=== PATIENT | male | born 1950 | race African-American/Black ===

== ENCOUNTER 2019-02-10 16:16 | Inpatient (IN) | payer OTHER ==
[2019-02-10 19:24] VITALS: BMI 24.1
--- NOTE | 2019-02-10 20:45 | HP ---
CIWA Score Nausea/Vomitin-No Nausea/No Vomiting Muscle Tremors: None Anxiety: 1-Mildly Anxious Agitation: 0-Normal Activity Paroxysmal Sweats: No Perspiration Orientation: 1-Uncertain about Date Tacttile Disturbances: 0-None Auditory Disturbances: 0-None Visual Disturbances: 0-None Headache: 0-None Present CIWA-Ar Total Score: 2 - Admission Criteria OASAS Guidelines: Admission for Medically Managed Detox: Requires at least one of the followin. CIWA greater than 12 2. Seizures within the past 24 hours 3. Delirium tremens within the past 24 hours 4. Hallucinations within the past 24 hours 5. Acute intervention needed for co occurring medical disorder 6. Acute intervention needed for co occurring psychiatric disorder 7. Severe withdrawal that cannot be handled at a lower level of care (continued vomiting, continued diarrhea, abnormal vital signs) requiring intravenous medication and/or fluids 8. Admission ROS S - [facility] Chief Complaint: sent here by [facility] for rehab. Pt using marijuana Allergies/Adverse Reactions: Allergies Allergy/AdvReac Type Severity Reaction Status Date / Time No Known Allergies Allergy Verified 02/10/19 19:17 History of Present Illness: 68 yo with HTN, CAD- denies, DM, living at a residence where his urine was noted to positive for marijuana. Pt was asked to come here for rehab. States he was smoking 2 marijuana cigarettes a day. Alcohol- uses vodka occ, a couple of times a week Denies other drug use. DUR- no controlled substances Utox- pos only for THC, JOEY-0 - Ebola screening Have you traveled outside of the country in the last 21 days: No (N) Have you had contact with anyone from an Ebola affected area: No Do you have a fever: No - Review of Systems Constitutional: No Symptoms Reported EENT: reports: No Symptoms Reported Respiratory: reports: No Symptoms reported Cardiac: reports: No Symptoms Reported GI: reports: No Symptoms Reported : reports: No Symptoms Reported Musculoskeletal: reports: No Symptoms Reported Integumentary: reports: No Symptoms Reported Neuro: reports: No Symptoms reported Endocrine: reports: No Symptoms Reported Hematology: reports: No Symptoms Reported Psychiatric: reports: No Sypmtoms Reported Patient History - Patient Medical History Hx Hypertension: Yes Hx Diabetes: Yes Hx Depression: No Hx Suicide Attempt: No Hx Bipolar Disorder: Yes Hx Schizophrenia: Yes Other Medical History: Pt is poor historian - Patient Surgical History Past Surgical History: No - Smoking Cessation Smoking history: Current every day smoker Have you smoked in the past 12 months: Yes Aproximately how many cigarettes per day: 20 Hx Chewing Tobacco Use: Yes Initiated information on smoking cessation: Yes 'Breaking Loose' booklet given: 02/10/19 - Substance & Tx. History Hx Alcohol Use: No Hx Substance Use: Yes Substance Use Type: Marijuana Hx Substance Use Treatment: No - Substances abused Marijuana/Hashish Substance route: Smoking Frequency: 1-2 times per week Amount used: 'little bit' Age of first use: 12 Date of last use: 01/30/19 Alcohol Substance route: Oral Frequency: 1-2 times per week Amount used: 2 cans/ 'little bit of vodka' Age of first use: 12 Date of last use: 01/19/19 Admission Physical Exam [facility] - Vital Signs Vital Signs: Vital Signs - 24 hr 02/10/19 19:15 Temperature 98.5 F Pulse Rate 69 Respiratory 16 Rate Blood Pressure 127/74 - Physical General Appearance: Yes: No Apparent Distress, Nourished HEENTM: Yes: Within Normal Limits, Hearing grossly Normal, Other (dentures) Respiratory: Yes: Within Normal Limits, Chest Non-Tender Neck: Yes: Within Normal Limits, No masses,lesions,Nodules Cardiology: Yes: Within Normal Limits, Regular Rhythm, Regular Rate Abdominal: Yes: Within Normal Limits, Non Tender Back: Yes: Within Normal Limits, Normal Inspection Musculoskeletal: Yes: Within Normal Limits Extremities: Yes: Within Normal Limits Neurological: Yes: Within Normal Limits, 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 Integumentary: Yes: Within Normal Limits - Diagnostic (1) Cannabis use disorder, mild, abuse Current Visit: Yes Status: Acute (2) Alcohol use Current Visit: Yes Status: Acute (3) Tobacco use disorder Current Visit: Yes Status: Acute (4) HTN (hypertension) Current Visit: Yes Status: Acute (5) Diabetes Current Visit: Yes Status: Acute Inpatient Rehab Admission - Rehab Decision to Admit Inpatient rehab admission?: Yes - Initial Determination Are CD services needed?: Yes Free of communicable disease: Yes Not in need of hospitalization: Yes - Rehab Admission Criteria Previous failed treatment: Yes Poor recovery environment: Yes Comorbidities: Yes Lacks judgement: Yes Patient is meeting Inpatient Rehab admission criteria:: Yes (pt here for using THC and alcohol)
[2019-02-10] MEDS ORDERED: LOPERAMIDE HCL 2 MG CAPSULE PO PRN (20:52)
[2019-02-10] MEDS ORDERED: IBUPROFEN 400 MG TABLET (FP) PO PRN (20:52)
[2019-02-10] MEDS ORDERED: MENTHOL/PHENOL 1 EACH UD MM PRN (20:52)
[2019-02-10] MEDS ORDERED: NICOTINE POLACRILEX 2 MG GUM BC PRN (20:52)
[2019-02-10] MEDS ORDERED: MAG HYDROX/AL HYDROX/SIMETH 30 ML UNIT-DOSE CUP PO PRN (20:52)
[2019-02-10] MEDS ORDERED: MAGNESIUM HYDROX 2400MG/30ML ORAL SUSPENSION 30 ML CUP PO PRN (20:52)
[2019-02-10] MEDS ORDERED: guaiFENesin 200 MG/10 ML 10 ML UNIT-DOSE CUPS PO PRN (20:52)
[2019-02-10] MEDS ORDERED: hydrOXYzine PAMOATE 25 MG CAPSULE (FP) PO PRN (20:52)
[2019-02-10] MEDS ORDERED: P-EPHED 60MG/TRIPROLIDI 2.5MG TABLET PO PRN (20:52)
[2019-02-10] MEDS ORDERED: ACETAMINOPHEN 325 MG TABLET (FP) PO PRN (20:52)
[2019-02-10] MEDS ORDERED: MAGNESIUM CITRATE 300 ML BOTTLE PO PRN (20:52)
[2019-02-10] MEDS ORDERED: ATORVASTATIN CA 40 MG TABLET (FP) PO SCH (22:00)
[2019-02-10] MEDS ORDERED: MELATONIN 5 MG TABLETS PO PRN (22:00)
[2019-02-10] MEDS ORDERED: THIAMINE HCL 100 MG TABLET (FP) PO SCH (22:00)
[2019-02-10] MEDS ORDERED: MIRTAZAPINE 30 MG TABLET (FP) PO SCH (22:00)
[2019-02-10] MEDS: metFORMIN HCL 500 MG TABLET (FP) PO SCH (23:17)
[2019-02-10 23:28] VITALS: BP 155/92; PULSE 67; TEMP 98.3
--- NOTE | 2019-02-11 09:57 | DS ---
[facility] Rehab Discharge Summary - [facility] Rehab Discharge Summary Admission Date: 02/10/19 Discharge Date: 02/11/19 - History Present History: Alcohol dependence, Cannabis dependence Additional Comments: Pt is a 68 y/o male admitted to rehab last night and requesting to leave this morning stating "personal reasons". declined to give futher reason. Pt reports he referred himself into treatment. Pt reports he has an all inclusive treatment at [facility] on [place], [place]. Pertinent Past History: dm htn hypercholesterolemia Schizophrenia Vitiligo - Discharge Physical Exam Vital Signs: Vital Signs Temperature 98.3 F 02/10/19 22:15 Pulse Rate 67 02/10/19 22:15 Respiratory Rate 18 02/11/19 07:17 Blood Pressure 155/92 02/10/19 22:15 O2 Sat by Pulse Oximetry (%) Alert o x 3.nad,denies s/h/i or hallucinations. Cardiac:s1 s2,rrr Lungs:cta,cheyenne. Abdomen:soft,+bs,nt,nd Extremities/Skin:Full ROM;No edema or cyanosis; skin with de-pigmented spots on lower extremities,poor skin tugor-dry. Pertinent Admission Physical Exam Findings: Laboratory Results - last 24 hr 02/11/19 07:35 POC Glucometer 133 Labs results pending; pt refused to wait. To follow up with primary care for routine care. - Treatment Discharge Condition: Discharge condition good Hospital Course: Pt was admitted less than 24 hrs ago. Discharged in safe condition. - Medication Discharge Medications: Ambulatory Orders Amlodipine Besylate 5 mg PO DAILY 02/10/19 Aripiprazole [Abilify] 10 mg PO DAILY 02/10/19 Aspirin [ASA -] 81 mg PO DAILY 02/10/19 Atorvastatin Ca [Lipitor] 40 mg PO HS 02/10/19 Hydrochlorothiazide [Hctz -] 25 mg PO DAILY 02/10/19 Metformin HCl [Glucophage] 850 mg PO BID 02/10/19 Mirtazapine [Remeron -] 30 mg PO HS 02/10/19 - Medication-Assisted Treatment (MAT) Medication-Assisted Treatment (MAT): No - Discharge Instructions Diet, activity, other medical instructions: Diet:Low salt, No concentrated sweets diet, Activity: [email or web address] Other medical instructions:Follow up with primary care provider for medical/ mental health management at [place], [place] within 1 week after discharge. Follow up with CD aftercare referral as scheduled. - Diagnosis (1) Hypercholesterolemia Current Visit: Yes Status: Chronic (2) Cannabis use disorder, mild, abuse Current Visit: Yes Status: Chronic (3) Diabetes Current Visit: Yes Status: Chronic Qualifiers: Diabetes mellitus type: type 2 Proliferative retinopathy type: unspecified (4) HTN (hypertension) Current Visit: Yes Status: Chronic Qualifiers: Hypertension type: essential hypertension Qualified Code(s): I10 - Essential (primary) hypertension (5) Tobacco use disorder Current Visit: Yes Status: Chronic (6) Alcohol use disorder Current Visit: Yes Status: Chronic (7) Vitiligo Current Visit: Yes Status: Chronic - Follow-up Referral Minutes to complete discharge: 20 - AMA Did Patient Leave Against Medical Advice: Yes Additional Comments: Pt reports he has own meds and will follow up with primary care provider for future refills at [place], [place].
[2019-02-11] MEDS ORDERED: ARIPiprazole 10 MG TABLET PO SCH (10:00)
[2019-02-11] MEDS ORDERED: ASPIRIN 81 MG CHEWABLE TABLETS PO SCH (10:00)
[2019-02-11] MEDS ORDERED: HYDROCHLOROTHIAZIDE 25 MG TABLET (FP) PO SCH (10:00)
[2019-02-11] MEDS ORDERED: PRENATAL VITAMINS W/ FOLIC ACID TABLET (FP) PO SCH (10:00)
[2019-02-11] MEDS ORDERED: amLODIPine BESYLATE 5 MG TABLET (FP) PO SCH (10:00)
[2019-02-11] MEDS: metFORMIN HCL 500 MG TABLET (FP) PO SCH (10:31)
[2019-02-11 12:10] LABS: URINE APPEARANCE CLEAR; URINE BILIRUBIN NEGATIVE (NEGATIVE); URINE COLOR YELLOW; URINE GLUCOSE (UA) NEGATIVE (NEGATIVE); URINE KETONE NEGATIVE (NEGATIVE); URINE LEUK ESTERASE NEGATIVE (NEGATIVE); URINE NITRITE NEGATIVE (NEGATIVE); URINE PROTEIN NEGATIVE (NEGATIVE); URINE UROBILINOGEN 0.2 mg/dL (0.2-1.0)
--- NOTE | 2019-02-11 12:22 | CONSULT ---
[facility] Psychiatric Consult - Data Date of interview: 02/11/19 Identifying data: Mr barcenas is a 68 years old male seeking rehab treatment for alcohol and cannabis Substance Abuse History: Reports history of alcohol and mrijuana use. Refer to addiction counselor's summary for further information Medical History: Significant for hypertension, type 2 diabetes mellitus and coronary artery disease. Smokes cigarettes 1 ppd
--- NOTE | 2019-02-11 12:29 | EKG ---
Test Reason : Blood Pressure : / mmHG Vent. Rate : 062 BPM Atrial Rate : 062 BPM P-R Int : 182 ms QRS Dur : 076 ms QT Int : 440 ms P-R-T Axes : 059 037 -30 degrees QTc Int : 446 ms NORMAL SINUS RHYTHM NONSPECIFIC T WAVE ABNORMALITY ABNORMAL ECG NO PREVIOUS ECGS AVAILABLE Confirmed by WIL MONTGOMERY, JULIO CÉSAR ([id number]) on 02/11/2019 12:29:28 PM Referred By: Confirmed By:JULIO CÉSAR DE LA TORRE MD
== END 2019-02-11 10:40 | disposition left against medical advice (07) | DRG 894 ==
LOC: YASAS 16:16 → Y5N 21:07
PROVIDERS: ADMIT Neuromusculoskeletal Medicine & OMM; ATTEND Neuromusculoskeletal Medicine & OMM
PROC: HZ42ZZZ Group Counseling for Substance Abuse Treatment, Cognitive-Behavioral (ICD-10-PCS; principal; 2019-02-10)
DX: F10.20 Alcohol dependence, uncomplicated (principal); F12.20 Cannabis dependence, uncomplicated; F17.210 Nicotine dependence, cigarettes, uncomplicated; F20.9 Schizophrenia, unspecified; I10 Essential (primary) hypertension; E11.9 Type 2 diabetes mellitus without complications; Z79.84 Long term (current) use of oral hypoglycemic drugs; L80 Vitiligo
CPT/HCPCS: 81003; 82962; 93005; 93010